=== PATIENT | male | born 1985 | race Caucasian/White ===

== ENCOUNTER 2024-08-01 13:55 | Outpatient (CLI) | payer OTHER, SELFPAY | END 2024-08-01 13:56 | disposition home or self-care (01) | LOC: LKVREF 14:05 | PROVIDERS: Visit Provider Family Medicine | DX: E78.5 Hyperlipidemia, unspecified (principal) | CPT/HCPCS: 80061 ==

== ENCOUNTER 2024-10-04 07:57 | Outpatient (CLI) | payer OTHER, SELFPAY | END 2024-10-04 07:58 | disposition home or self-care (01) | LOC: NFLDREF 10-05 16:19 | PROVIDERS: Visit Provider Family Medicine | DX: E78.00 Pure hypercholesterolemia, unspecified (principal) | CPT/HCPCS: 80061 ==